=== PATIENT | male | born 1945 | race American Indian/Alaskan Native ===

== ENCOUNTER 2017-04-30 02:22 | Emergency (ER) | payer MEDICARE ==
[2017-04-30 05:15] LABS: Basophils % (Auto) 0.3 % (0.0-1.8); Eosinophils % (Auto) 1.5 % (0.0-4.3); Hematocrit 44.4 % (35.5-45.6); Mean Corpuscular HGB Conc 34 % (32-34); Mean Corpuscular Hemoglobin 30 pg (28-32); Mean Corpuscular Volume 89 fl (84-94); Platelet Count 170 K/mm3 (140-440); Red Blood Count 5.01 M/mm3 (3.65-5.03); Red Cell Distribution Width 14.7 % (13.2-15.2); White Blood Count 5.9 K/mm3 (4.5-11.0)
[2017-04-30 05:32] LABS: Alanine Aminotransferase 23 units/L (7-56); Albumin 3.9 g/dL (3.9-5); Albumin/Globulin Ratio 1.3 %; Alkaline Phosphatase 67 units/L (35-129); Anion Gap 20 mmol/L; BUN/Creatinine Ratio 18.18; Blood Urea Nitrogen 20 mg/dL (9-20); Calcium 9.4 mg/dL (8.4-10.2); Carbon Dioxide 22 mmol/L (22-30); Chloride 103.6 mmol/L (98-107); Glucose 99 mg/dL (75-100); Potassium 4.6 mmol/L (3.6-5.0); Sodium 141 mmol/L (137-145)
[2017-04-30] MEDS ORDERED: TORADOL IV ONE (06:44)
[2017-04-30] MEDS ORDERED: NORCO 5/325 PO ONE (06:44)
--- NOTE | 2017-04-30 06:59 | Emergency Department Report ---
ED Chest Pain HPI - General Chief Complaint: Chest Pain Stated Complaint: CHEST PAIN Time Seen by Provider: 04/30/17 06:28 Source: patient, EMS Mode of arrival: Stretcher Limitations: Physical Limitation - History of Present Illness Initial Comments: 71 year old male with a past medical history hypertension and pacemaker placement (3-4 years ago) presents to the hospital with complaints of left- sided chest pain since 8 AM yesterday. Pain is in the left upper chest extending to left arm. Pain is described as a constant pressure with intermittent throbbing component rated at 9/10 in intensity. Pain is worse with palpation, movement, and deep inspiration. Shortness of breath only reported secondary to pain. Mild diaphoresis. No nausea, vomiting, Dizziness, or edema. Patient has been back and forth from [facility]. His primary care doctor and back [facility] [employer] located in [place]. Patient reports having a negative stress test in [place] week ago and a negative cardiac cath approximately one year ago Severity scale (0 -10): 9 - Related Data Previous Rx's Medication Instructions Recorded Last Taken Type HYDROcodone/APAP 10-325 [[place] 1 each PO Q6HR PRN #20 tablet 04/30/17 Unknown Rx 10/325] Ibuprofen [Motrin] 400 mg PO Q8H PRN #30 tablet 04/30/17 Unknown Rx Allergies Allergy/AdvReac Type Severity Reaction Status Date / Time No Known Allergies Allergy Unverified 04/30/17 02:42 Heart Score - HEART Score History: Slightly suspicious EKG: Non-specific Age: > 65 Risk factors: 1-2 risk factors Troponin: < normal limit HEART Score: 4 ED Review of Systems ROS: Stated complaint: CHEST PAIN Other details as noted in HPI Comment: All other systems reviewed and negative Other: Constitutional: No fevers chills Eyes: No eye pain visual changes ENT: No ear pain or throat pain Neck: Denies pain Respiratory: Denies cough wheezing shortness of breath Cardiovascular: Denies palpitations, syncope GI: Denies abdominal pain, nausea, vomiting, diarrhea : Denies dysuria Musculoskeletal: Denies back pain Skin: Denies rash, lesions, erythema Neurologic: Denies headache, numbness, weakness Psychiatric: Denies suicidal ideation, hallucinations ED Past Medical Hx - Past Medical History Hx Hypertension: Yes Additional medical history: pacemaker - Surgical History Hx Pacemaker: Yes - Social History Smoking Status: Never Smoker Substance Use Type: Alcohol - Medications Home Medications: Home Medications Medication Instructions Recorded Confirmed Last Taken Type HYDROcodone/APAP 10-325 [[place] 1 each PO Q6HR PRN #20 tablet 04/30/17 Unknown Rx 10/325] Ibuprofen [Motrin] 400 mg PO Q8H PRN #30 tablet 04/30/17 Unknown Rx ED Physical Exam - General Limitations: Physical Limitation - Other Other exam information: General: No limitations, patient is alert in no acute distress Head exam: Atraumatic, normocephalic Eyes exam: Normal appearance, pupils equal reactive to light, extraocular movements intact ENT: Moist mucous membrane, normal oropharynx Neck exam: Normal inspection, full range of motion, no meningismus nontender Respiratory exam: Clear to auscultation bilateral, no wheezes, rales, crackles Cardiovascular: Normal rate and rhythm, reproducible left upper chest wall pain at the pectoralis muscle to the shoulder. Pain also reproducible left arm movement Abdomen: Soft, nondistended, and nontender, with normal bowel sounds, no rebound, or guarding Extremity: Full range of motion normal inspection no deformity, no calf tenderness or edema Back: Normal Inspection, full range of motion, no tenderness Neurologic: Alert, oriented x3, cranial nerves intact, no motor or sensory deficit Psychiatric: normal affect, normal mood Skin: Warm, dry, intact ED Course Vital Signs 04/30/17 04/30/17 04/30/17 02:36 02:38 02:45 Temperature 98.1 F Pulse Rate 55 L 55 L 53 L Respiratory 12 13 14 Rate Blood Pressure 135/63 121/59 Blood Pressure 135/63 [Right] O2 Sat by Pulse 98 97 98 Oximetry 04/30/17 04/30/17 04/30/17 03:00 03:08 03:15 Temperature Pulse Rate 52 L 54 L Respiratory 10 L 15 Rate Blood Pressure 121/59 117/67 Blood Pressure [Right] O2 Sat by Pulse 99 98 99 Oximetry 04/30/17 04/30/17 04/30/17 03:30 03:45 04:01 Temperature Pulse Rate 51 L 50 L 50 L Respiratory 14 12 13 Rate Blood Pressure 108/55 105/56 117/64 Blood Pressure [Right] O2 Sat by Pulse 99 99 99 Oximetry 04/30/17 04/30/17 04/30/17 04:15 04:30 04:45 Temperature Pulse Rate 52 L 55 L 51 L Respiratory 11 L 13 12 Rate Blood Pressure 129/72 113/56 105/55 Blood Pressure [Right] O2 Sat by Pulse 99 99 99 Oximetry 04/30/17 04/30/17 04/30/17 05:00 05:15 05:30 Temperature Pulse Rate 50 L 51 L 57 L Respiratory 12 12 10 L Rate Blood Pressure 102/54 116/60 118/67 Blood Pressure [Right] O2 Sat by Pulse 99 99 100 Oximetry 04/30/17 04/30/17 04/30/17 05:45 06:00 07:00 Temperature Pulse Rate 51 L 50 L 52 L Respiratory 11 L 12 12 Rate Blood Pressure 116/60 109/62 122/68 Blood Pressure [Right] O2 Sat by Pulse 99 99 99 Oximetry 04/30/17 08:00 Temperature Pulse Rate 53 L Respiratory 13 Rate Blood Pressure 115/58 Blood Pressure [Right] O2 Sat by Pulse 99 Oximetry - Reevaluation(s) Reevaluation #1: 04/30/17 09:04 Patient has relief in pain at the Toradol, morphine, and [place]. MEGHAN score - Meghan Score Age > 65: (1) Yes Aspirin use within the Past 7 Days: (1) Yes 3 or more CAD Risk Factors: (1) Yes 2 or more Angina events in past 24 hrs: (0) No Known CAD with more than 50% Stenosis: (0) No Elevated Cardiac Markers: (0) No ST Deviation Greater than 0.5mm: (0) No MEGHAN Score: 3 ED Medical Decision Making - Lab Data Result diagrams: 04/30/17 04:11 04/30/17 04:11 Lab Results 04/30/17 04/30/17 04/30/17 Range/Units 04:11 04:11 07:19 WBC 5.9 (4.5-11.0) K/mm3 RBC 5.01 (3.65-5.03) M/mm3 Hgb 15.0 (11.8-15.2) gm/dl Hct 44.4 (35.5-45.6) % MCV 89 (84-94) fl MCH 30 (28-32) pg MCHC 34 (32-34) % RDW 14.7 (13.2-15.2) % Plt Count 170 (140-440) K/mm3 Lymph % (Auto) 33.3 (13.4-35.0) % [place] % (Auto) 6.4 (0.0-7.3) % Eos % (Auto) 1.5 (0.0-4.3) % Baso % (Auto) 0.3 (0.0-1.8) % Lymph # 2.0 (1.2-5.4) K/mm3 [place] # 0.4 (0.0-0.8) K/mm3 Eos # 0.1 (0.0-0.4) K/mm3 Baso # 0.0 (0.0-0.1) K/mm3 Seg Neutrophils % 58.5 (40.0-70.0) % Seg Neutrophils # 3.5 (1.8-7.7) K/mm3 D-Dimer < 135 (0-234) ng/mlDDU Sodium 141 (137-145) mmol/L Potassium 4.6 (3.6-5.0) mmol/L Chloride 103.6 (98-107) mmol/L Carbon Dioxide 22 (22-30) mmol/L Anion Gap 20 mmol/L BUN 20 (9-20) mg/dL Creatinine 1.1 (0.8-1.5) mg/dL Estimated GFR > 60 ml/min BUN/Creatinine Ratio 18.18 % Glucose 99 (75-100) mg/dL Calcium 9.4 (8.4-10.2) mg/dL Total Bilirubin 0.50 (0.1-1.2) mg/dL AST 19 (5-40) units/L ALT 23 (7-56) units/L Alkaline Phosphatase 67 (35-129) units/L Troponin T < 0.010 (0.00-0.029) ng/mL Total Protein 7.0 (6.3-8.2) g/dL Albumin 3.9 (3.9-5) g/dL Albumin/Globulin Ratio 1.3 % 04/30/17 Range/Units 07:19 WBC (4.5-11.0) K/mm3 RBC (3.65-5.03) M/mm3 Hgb (11.8-15.2) gm/dl Hct (35.5-45.6) % MCV (84-94) fl MCH (28-32) pg MCHC (32-34) % RDW (13.2-15.2) % Plt Count (140-440) K/mm3 Lymph % (Auto) (13.4-35.0) % [place] % (Auto) (0.0-7.3) % Eos % (Auto) (0.0-4.3) % Baso % (Auto) (0.0-1.8) % Lymph # (1.2-5.4) K/mm3 [place] # (0.0-0.8) K/mm3 Eos # (0.0-0.4) K/mm3 Baso # (0.0-0.1) K/mm3 Seg Neutrophils % (40.0-70.0) % Seg Neutrophils # (1.8-7.7) K/mm3 D-Dimer (0-234) ng/mlDDU Sodium (137-145) mmol/L Potassium (3.6-5.0) mmol/L Chloride (98-107) mmol/L Carbon Dioxide (22-30) mmol/L Anion Gap mmol/L BUN (9-20) mg/dL Creatinine (0.8-1.5) mg/dL Estimated GFR ml/min BUN/Creatinine Ratio % Glucose (75-100) mg/dL Calcium (8.4-10.2) mg/dL Total Bilirubin (0.1-1.2) mg/dL AST (5-40) units/L ALT (7-56) units/L Alkaline Phosphatase (35-129) units/L Troponin T < 0.010 (0.00-0.029) ng/mL Total Protein (6.3-8.2) g/dL Albumin (3.9-5) g/dL Albumin/Globulin Ratio % - EKG Data -: EKG Interpreted by Ar (sinus rate 53, electrical Atrial pacemaker right bundle branch block) - Radiology Data Radiology results: image reviewed (chest x-ray portable: No acute finding) - Medical Decision Making Patient's pain and clinically is musculoskeletal origin. Pain is with palpation and movement. No DVT symptoms and negative d-dimer. Low pretest probability according to Wells criteria. Cardiac enzymes negative 2 with unremarkable EKG. Patient be discharged home with medications for pain - Differential Diagnosis chest wall pain, infection, PE, [place], unstable angina Critical Care Time: No Critical care attestation.: If time is entered above; I have spent that time in minutes in the direct care of this critically ill patient, excluding procedure time. ED Disposition Clinical Impression: Musculoskeletal chest pain Disposition: TO HOME OR SELFCARE Is pt being admited?: No Does the pt Need Aspirin: No Condition: Stable Instructions: Thoracic Pain (ED) Additional Instructions: Take the medication as needed for pain. Follow-up with your doctor. Return if symptoms worsen. You have also been provided a local primary care doctor and [employer] for follow-up as well. Prescriptions: HYDROcodone/APAP 10-325 [[place] 10/325] 1 each PO Q6HR PRN #20 tablet PRN Reason: Pain Ibuprofen [Motrin] 400 mg PO Q8H PRN #30 tablet PRN Reason: Pain Referrals: DENNIS MARLEY MD [Staff Physician] - 3-5 Days ([employer]) AMY SANDERS MD [Referring] - 3-5 Days (primary care doctor ) Time of Disposition: 09:07
--- NOTE | 2017-04-30 07:56 | XRay Report ---
AP CHEST: HISTORY: chest pain No comparison. A pacemaker device is in position. Multiple cardiac leads overlie the chest as well. Heart size is within normal limits. The lungs are clear. No evidence for pneumonia, CHF or pneumothorax. IMPRESSION: No acute cardiopulmonary process identified.
[2017-04-30] MEDS ORDERED: MORPHINE IV ONE (08:21)
[2017-04-30] MEDS ORDERED: ZOFRAN IV ONE (08:21)
[2017-04-30 09:22] VITALS: BP 120/68
== END 2017-04-30 09:23 | disposition home or self-care (01) ==
LOC: ED 02:22
DX: R07.89 Other chest pain (principal); R06.02 Shortness of breath; I10 Essential (primary) hypertension; Z95.0 Presence of cardiac pacemaker
CPT/HCPCS: 36415; 71010; 80053; 84484; 85025; 85379; 93005; 93010; 96374; 96375; 99285; J1885; J2270; J2405